=== PATIENT | male | born 1960 | race Caucasian/White ===

== ENCOUNTER 2021-02-01 10:12 | Emergency (ER) | payer BC ==
[~2021-02-01] VITALS: Ht 182.9 cm; Wt 81.6 kg
[2021-02-01] MEDS ORDERED: CASIRIVIMAB/IMDEVIMAB 10 ML in SODIUM CHLORIDE 0.9% 100 ML IV ONE (10:45)
[2021-02-01] MEDS ORDERED: SODIUM CHLORIDE 0.9% 100 ML ONE (10:48)
== END 2021-02-01 12:11 | disposition home or self-care (01) ==
LOC: ER 10:33
DX: U07.1 COVID-19 (principal)
CPT/HCPCS: 99283; J7050

== ENCOUNTER → 2024-03-04 | Outpatient (REF) | payer MEDICARE | LOC: MRI 10:33 | PROVIDERS: ATTEND Podiatrist Foot Surgery | DX: M86.9 Osteomyelitis, unspecified (principal) ==